=== PATIENT | female | born 1940 | race Caucasian/White ===

== ENCOUNTER 2024-03-20 05:34 | Inpatient (IN) | payer OTHER ==
[2024-03-20] MEDS ORDERED: FUROSEMIDE 40 MG/4 ML INJECTABLE VIAL ONE (05:49)
[2024-03-20] MEDS: FUROSEMIDE 40 MG/4 ML INJECTABLE VIAL IVPUSH ONE (06:11)
[2024-03-20] MEDS: NITROGLYCERIN 25MG/D5W 250ML 25 MG/250 ML ML IVPB SCH (06:11)
[2024-03-20 06:30] LABS: VENOUS BASE EXCESS -0.1 mmol/L (-2-2); VENOUS PCO2 56.5 mmHg (38-52); VENOUS PH 7.304 (7.310-7.410)
[2024-03-20 06:55] LABS: BASO % 0.3 % (0-2.0); EOS % 0.9 % (0-4.5); HEMATOCRIT 40.8 % (32.4-45.2); HEMOGLOBIN 13.4 GM/dL (10.7-15.3); LYMPH % 36.5 % (8-40); MCH 30.1 pg (25.7-33.7); MCHC 32.9 g/dl (32.0-36.0); MEAN CELL VOLUME 91.3 fl (80-96); MEAN PLT VOLUME 9.4 fl (7.5-11.1); MONO % 6.5 % (3.8-10.2); NEUT % 55.8 % (42.8-82.8); PLATELET COUNT 249 10^3/uL (134-434); RBC 4.46 M/mm3 (3.60-5.2); RDW 13.9 % (11.6-15.6); WHITE BLOOD COUNT 7.2 K/mm3 (4.0-10.0)
[2024-03-20 07:12] LABS: INR 0.95 (0.83-1.09); PROTHROMBIN TIME (PATIENT) 10.8 SEC (9.7-13.0)
[2024-03-20 07:14] LABS: POTASSIUM 4.3 mmol/L (3.5-5.1)
[2024-03-20 07:15] LABS: ACTIVATED PTT 30.9 SECONDS (25.2-36.5)
[2024-03-20 07:16] LABS: BLOOD UREA NITROGEN 20.1 mg/dL (7-18); MAGNESIUM 2.1 mg/dL (1.8-2.4)
[2024-03-20 07:22] LABS: BILIRUBIN,TOTAL 0.5 mg/dL (0.2-1); TOT PROT 7.4 g/dl (6.4-8.2)
[2024-03-20 07:24] LABS: N-TERMINAL BNP 97.5 pg/ml (5-450)
[2024-03-20] MEDS ORDERED: ENOXAPARIN NA (PORCINE) 40 MG/0.4 ML DISP.SYRIN SQ SCH (10:00)
[2024-03-20] MEDS: CARVEDILOL 6.25 MG TABLET (FP) PO SCH (10:09)
[2024-03-20] MEDS: ENOXAPARIN NA (PORCINE) 40 MG/0.4 ML DISP.SYRIN SQ SCH (10:09)
[2024-03-20] MEDS: CLOPIDOGREL BISULFATE 75 MG TABLET (FP) PO SCH (10:09)
[2024-03-20] MEDS: ASPIRIN COATED 81 MG TABLET.EC PO SCH (10:09)
[2024-03-20] MEDS: VALSARTAN 160 MG TABLET PO SCH (10:09)
[2024-03-20 15:02] VITALS: BMI 30.1
[2024-03-20] MEDS: ATORVASTATIN CA 20 MG TABLET (FP) PO SCH (21:23)
[2024-03-20] MEDS: MIRTAZAPINE 15 MG TABLET (FP) PO SCH (21:23)
[2024-03-21 08:57] LABS: BASO % 0.4 % (0-2.0); EOS % 0.7 % (0-4.5); HEMATOCRIT 38.3 % (32.4-45.2); HEMOGLOBIN 12.5 GM/dL (10.7-15.3); LYMPH % 32.6 % (8-40); MCH 29.8 pg (25.7-33.7); MCHC 32.7 g/dl (32.0-36.0); MEAN CELL VOLUME 91.2 fl (80-96); MEAN PLT VOLUME 9.6 fl (7.5-11.1); MONO % 8.9 % (3.8-10.2); NEUT % 57.4 % (42.8-82.8); PLATELET COUNT 237 10^3/uL (134-434); RBC 4.21 M/mm3 (3.60-5.2); RDW 13.5 % (11.6-15.6); WHITE BLOOD COUNT 6.5 K/mm3 (4.0-10.0)
[2024-03-21 09:09] LABS: POTASSIUM 3.9 mmol/L (3.5-5.1)
[2024-03-21 09:16] LABS: CALCIUM 9.2 mg/dL (8.5-10.1)
[2024-03-21 09:17] LABS: BLOOD UREA NITROGEN 21.4 mg/dL (7-18); MAGNESIUM 2.1 mg/dL (1.8-2.4)
[2024-03-21 09:20] LABS: PHOSPHOROUS 2.9 mg/dL (2.5-4.9)
[2024-03-21 09:21] LABS: BILIRUBIN,TOTAL 0.8 mg/dL (0.2-1); TOT PROT 7.1 g/dl (6.4-8.2)
[2024-03-21 17:00] VITALS: BP 150/63; PULSE 74; RESP 16; TEMP 98.2
== END 2024-03-21 16:59 | disposition short-term general hospital (02) | DRG 281 ==
LOC: JER 05:34 → JERBED 07:56 → J4W 09:24
PROVIDERS: ADMIT Internal Medicine; ATTEND Internal Medicine
DX: I21.4 Non-ST elevation (NSTEMI) myocardial infarction (principal); I16.1 Hypertensive emergency; I42.8 Other cardiomyopathies; E78.5 Hyperlipidemia, unspecified; I25.10 Atherosclerotic heart disease of native coronary artery without angina pectoris; Z86.73 Personal history of transient ischemic attack (TIA), and cerebral infarction without residual deficits
CPT/HCPCS: 0241U-QW; 36415; 71045-TC-FY; 80053; 82803; 83605; 83735; 83880; 84100; 84484; 85025; 85610; 85730; 86850; 86900; 86901; 93005; 93010; 93306-TC; 99285-25

== ENCOUNTER 2024-03-30 02:40 | Observation (INO) | payer OTHER ==
[2024-03-30] MEDS ORDERED: ONDANSETRON *ODT* 4 MG TABLET ONE (04:38)
[2024-03-30] MEDS ORDERED: ACETAMINOPHEN 325 MG TABLET (FP) ONE (04:38)
[2024-03-30 04:52] LABS: BASO % 0.4 % (0-2.0); EOS % 0.5 % (0-4.5); HEMATOCRIT 34.3 % (32.4-45.2); HEMOGLOBIN 11.5 GM/dL (10.7-15.3); LYMPH % 28.4 % (8-40); MCH 29.9 pg (25.7-33.7); MCHC 33.5 g/dl (32.0-36.0); MEAN PLT VOLUME 9.5 fl (7.5-11.1); MONO % 10.2 % (3.8-10.2); NEUT % 60.5 % (42.8-82.8); PLATELET COUNT 277 10^3/uL (134-434); RBC 3.86 M/mm3 (3.60-5.2); RDW 13.5 % (11.6-15.6); WHITE BLOOD COUNT 4.7 K/mm3 (4.0-10.0)
[2024-03-30 04:56] LABS: POTASSIUM 4.9 mmol/L (3.5-5.1)
[2024-03-30] MEDS: ACETAMINOPHEN 500 MG TABLET (FP) PO ONE (04:57)
[2024-03-30 04:58] LABS: BLOOD UREA NITROGEN 19.6 mg/dL (7-18); CALCIUM 9.7 mg/dL (8.5-10.1); MAGNESIUM 2.2 mg/dL (1.8-2.4)
[2024-03-30 05:02] LABS: CREATININE 0.8 mg/dL (0.55-1.3)
[2024-03-30 05:03] LABS: BILIRUBIN,TOTAL 0.4 mg/dL (0.2-1); TOT PROT 6.9 g/dl (6.4-8.2)
[2024-03-30] MEDS: ONDANSETRON *ODT* 4 MG TABLET SL ONE (05:03)
[2024-03-30 05:32] LABS: PH,URINE 6.5 (5.0-8.0); URINE APPEARANCE CLEAR; URINE BILIRUBIN NEGATIVE (NEGATIVE); URINE COLOR YELLOW; URINE GLUCOSE (UA) NEGATIVE (NEGATIVE); URINE KETONE NEGATIVE (NEGATIVE); URINE LEUK ESTERASE NEGATIVE (NEGATIVE); URINE NITRITE NEGATIVE (NEGATIVE); URINE PROTEIN NEGATIVE (NEGATIVE); URINE UROBILINOGEN 0.2 mg/dL (0.2-1.0)
[2024-03-30 06:09] LABS: POTASSIUM 4.2 mmol/L (3.5-5.1)
[2024-03-30 06:10] LABS: CALCIUM 9.6 mg/dL (8.5-10.1)
[2024-03-30 06:14] LABS: CREATININE 0.9 mg/dL (0.55-1.3)
[2024-03-30] MEDS ORDERED: VALSARTAN 80 MG TABLET ONE (10:28)
[2024-03-30] MEDS ORDERED: CLOPIDOGREL BISULFATE 75 MG TABLET (FP) ONE (10:28)
[2024-03-30] MEDS ORDERED: amLODIPine BESYLATE 2.5 MG TABLET (FP) ONE (10:28)
[2024-03-30] MEDS ORDERED: ASPIRIN COATED 81 MG TABLET.EC ONE (10:28)
[2024-03-30] MEDS ORDERED: ENOXAPARIN NA (PORCINE) 40 MG/0.4 ML DISP.SYRIN SQ ONE (10:29)
[2024-03-30] MEDS: ASPIRIN COATED 81 MG TABLET.EC PO SCH (10:30)
[2024-03-30] MEDS: VALSARTAN 160 MG TABLET PO SCH (10:30)
[2024-03-30] MEDS: CLOPIDOGREL BISULFATE 75 MG TABLET (FP) PO SCH (10:31)
[2024-03-30] MEDS: ENOXAPARIN NA (PORCINE) 40 MG/0.4 ML DISP.SYRIN SQ SCH (10:31)
[2024-03-30] MEDS: amLODIPine BESYLATE 2.5 MG TABLET (FP) PO SCH (10:31)
[2024-03-30] MEDS ORDERED: ATORVASTATIN CA 20 MG TABLET (FP) ONE (22:06)
[2024-03-30] MEDS ORDERED: MELATONIN 5 MG TABLETS ONE (22:06)
[2024-03-30] MEDS: ATORVASTATIN CA 20 MG TABLET (FP) PO SCH (22:09)
[2024-03-30] MEDS: MELATONIN 1 MG TABLET PO SCH (22:21)
[2024-03-31 07:31] LABS: BASO % 0.4 % (0-2.0); EOS % 1.6 % (0-4.5); HEMATOCRIT 32.5 % (32.4-45.2); HEMOGLOBIN 10.7 GM/dL (10.7-15.3); LYMPH % 43.3 % (8-40); MCH 29.8 pg (25.7-33.7); MCHC 33.1 g/dl (32.0-36.0); MEAN CELL VOLUME 90.2 fl (80-96); MEAN PLT VOLUME 9.5 fl (7.5-11.1); NEUT % 43.7 % (42.8-82.8); PLATELET COUNT 229 10^3/uL (134-434); RDW 13.6 % (11.6-15.6); WHITE BLOOD COUNT 4.3 K/mm3 (4.0-10.0)
[2024-03-31] MEDS ORDERED: MECLIZINE HCL 25 MG TABLET (FP) PO PRN ×2 (08:33→10:09)
[2024-03-31] MEDS ORDERED: CLOPIDOGREL BISULFATE 75 MG TABLET (FP) ONE (10:08)
[2024-03-31] MEDS ORDERED: ASPIRIN COATED 81 MG TABLET.EC ONE (10:08)
[2024-03-31] MEDS ORDERED: amLODIPine BESYLATE 2.5 MG TABLET (FP) ONE (10:08)
[2024-03-31] MEDS ORDERED: ENOXAPARIN NA (PORCINE) 40 MG/0.4 ML DISP.SYRIN SQ ONE (10:09)
[2024-03-31 10:30] LABS: POTASSIUM 4.3 mmol/L (3.5-5.1)
[2024-03-31 10:32] LABS: CALCIUM 9.2 mg/dL (8.5-10.1)
[2024-03-31 10:33] LABS: ALBUMIN 3.5 g/dl (3.4-5.0); BLOOD UREA NITROGEN 17.4 mg/dL (7-18); MAGNESIUM 2.3 mg/dL (1.8-2.4)
[2024-03-31 10:36] LABS: CREATININE 0.9 mg/dL (0.55-1.3); PHOSPHOROUS 3.7 mg/dL (2.5-4.9)
[2024-03-31 10:37] LABS: BILIRUBIN,TOTAL 0.4 mg/dL (0.2-1)
[2024-03-31] MEDS ORDERED: MECLIZINE HCL 12.5 MG TABLET ONE (14:05)
[2024-03-31] MEDS: MECLIZINE HCL 12.5 MG TABLET PO SCH (14:12)
[2024-03-31 17:47] VITALS: RESP 18; BMI 30.7
[2024-04-01 12:28] VITALS: BP 138/76; PULSE 72; TEMP 98.6
== END 2024-04-01 15:30 | disposition home health service (06) ==
LOC: JER 02:40 → JERBED 06:31 → J4W 03-31 14:51
PROVIDERS: ATTEND Nurse Practitioner
PROC: 3E023GC Introduction of Other Therapeutic Substance into Muscle, Percutaneous Approach (ICD-10-PCS; principal; 2024-03-30)
DX: R42 Dizziness and giddiness (principal); R51.9 Headache, unspecified; I10 Essential (primary) hypertension; Z72.820 Sleep deprivation; I25.2 Old myocardial infarction; I67.1 Cerebral aneurysm, nonruptured; Z86.73 Personal history of transient ischemic attack (TIA), and cerebral infarction without residual deficits; I65.29 Occlusion and stenosis of unspecified carotid artery; Z79.01 Long term (current) use of anticoagulants
CPT/HCPCS: 0241U-QW; 36415; 70450-TC; 70551-TC; 71045-TC-FY; 80048; 80053; 81003; 83605; 83735; 84100; 84484; 85025; 87086; 93005; 93010; 96372; 99285-25; G0378; Q0162

== ENCOUNTER 2024-07-26 16:47 | Observation (INO) | payer OTHER ==
[2024-07-26] MEDS: SODIUM CHLORIDE 0.9% 500 ML INFUS.BAG IV ONE (18:00)
[2024-07-26 18:16] LABS: PH,URINE 6.5 (5.0-8.0); URINE APPEARANCE CLEAR; URINE BILIRUBIN NEGATIVE (NEGATIVE); URINE COLOR YELLOW; URINE GLUCOSE (UA) NEGATIVE (NEGATIVE); URINE KETONE NEGATIVE (NEGATIVE); URINE LEUK ESTERASE NEGATIVE (NEGATIVE); URINE NITRITE NEGATIVE (NEGATIVE); URINE PROTEIN NEGATIVE (NEGATIVE); URINE UROBILINOGEN 0.2 mg/dL (0.2-1.0)
[2024-07-26 18:30] LABS: POTASSIUM 5.8 mmol/L (3.5-5.1)
[2024-07-26 18:32] LABS: CALCIUM 8.5 mg/dL (8.5-10.1)
[2024-07-26 18:33] LABS: ALBUMIN 3.6 g/dl (3.4-5.0)
[2024-07-26 18:34] LABS: BLOOD UREA NITROGEN 16.6 mg/dL (7-18)
[2024-07-26 18:38] LABS: TOT PROT 6.8 g/dl (6.4-8.2)
[2024-07-26 18:39] LABS: BILIRUBIN,TOTAL 0.6 mg/dL (0.2-1)
[2024-07-26] MEDS ORDERED: ATORVASTATIN CA 80 MG TABLET (FP) ONE (22:18)
[2024-07-26] MEDS: ATORVASTATIN CA 80 MG TABLET (FP) PO SCH (22:27)
[2024-07-26 23:07] LABS: HEMATOCRIT 38.5 % (32.4-45.2); HEMOGLOBIN 12.5 GM/dL (10.7-15.3); MCH 29.1 pg (25.7-33.7); MCHC 32.5 g/dl (32.0-36.0); MEAN CELL VOLUME 89.3 fl (80-96); MEAN PLT VOLUME 8.7 fl (7.5-11.1); PLATELET COUNT 241 10^3/uL (134-434); RBC 4.31 M/mm3 (3.60-5.2); RDW 13.4 % (11.6-15.6); WHITE BLOOD COUNT 5.2 K/mm3 (4.0-10.0)
[2024-07-27] MEDS ORDERED: MECLIZINE HCL 12.5 MG TABLET PO PRN
[2024-07-27] MEDS: hydrALAZINE HCL 20 MG/ML VIAL IVPUSH PRN (00:09)
[2024-07-27] MEDS ORDERED: DEXTROSE 50%-WATER 25 GM/50 ML DISP.SYRIN ONE (00:32)
[2024-07-27] MEDS: DEXTROSE 50%-WATER 25 GM/50 ML DISP.SYRIN IVPUSH ONE (01:03)
[2024-07-27] MEDS: MIRTAZAPINE 15 MG TABLET (FP) PO SCH (01:03)
[2024-07-27 01:38] VITALS: RESP 18; BMI 30.2
[2024-07-27] MEDS: IBUPROFEN 600 MG TABLET (FP) PO ONE (06:36)
[2024-07-27 09:14] LABS: BLOOD UREA NITROGEN 11.2 mg/dL (7-18); CALCIUM 9.1 mg/dL (8.5-10.1)
[2024-07-27 09:17] LABS: CREATININE 0.8 mg/dL (0.55-1.3)
[2024-07-27 09:19] LABS: BILIRUBIN,TOTAL 0.7 mg/dL (0.2-1); TOT PROT 6.8 g/dl (6.4-8.2)
[2024-07-27] MEDS ORDERED: ATORVASTATIN CA 80 MG TABLET (FP) PO SCH (10:30)
[2024-07-27] MEDS: VALSARTAN 160 MG TABLET PO SCH (11:04)
[2024-07-27] MEDS: amLODIPine BESYLATE 5 MG TABLET (FP) PO SCH (11:04)
[2024-07-27] MEDS: ENOXAPARIN NA (PORCINE) 40 MG/0.4 ML DISP.SYRIN SQ SCH (11:04)
[2024-07-27] MEDS: ASPIRIN COATED 81 MG TABLET.EC PO SCH (11:04)
[2024-07-27] MEDS: CARVEDILOL 3.125 MG TABLET (FP) PO SCH (11:05)
[2024-07-27] MEDS: CLOPIDOGREL BISULFATE 75 MG TABLET (FP) PO SCH (11:06)
[2024-07-27 15:30] VITALS: PULSE 84
[2024-07-27 16:17] VITALS: BP 130/84; TEMP 98.6
== END 2024-07-27 16:17 | disposition home or self-care (01) ==
LOC: JER 16:47 → JERBED 20:48 → OBSVTOIN 20:48 → UNDOADMOB 20:48 → INTOOBSV 20:48 → JERBED 23:12 → J4W 23:12
PROVIDERS: ADMIT Internal Medicine; ATTEND Internal Medicine
PROC: 3E033GC Introduction of Other Therapeutic Substance into Peripheral Vein, Percutaneous Approach (ICD-10-PCS; principal; 2024-07-27)
PROC: 3E023GC Introduction of Other Therapeutic Substance into Muscle, Percutaneous Approach (ICD-10-PCS; 2024-07-27)
DX: G45.9 Transient cerebral ischemic attack, unspecified (principal); I16.0 Hypertensive urgency; I67.1 Cerebral aneurysm, nonruptured; R47.01 Aphasia; R51.9 Headache, unspecified; I25.2 Old myocardial infarction
CPT/HCPCS: 36415; 70450-TC; 70496-TC; 70498-TC; 71045-TC-FY; 80053; 80061; 81003; 82550; 82553; 82962; 83036; 84439; 84443; 84484; 85027; 86850; 86900; 86901; 93005; 93010; 93306-TC; 96372; 96374; 96375; 97116-GP; 97161-GP; 99285-25; G0378; Q9967